=== PATIENT | male | born 1970 | race Caucasian/White ===

== ENCOUNTER → 2020-03-20 | Emergency (ER) | payer OTHER ==
[~2020-03-20] VITALS: Ht 162.6 cm; Wt 77.1 kg
[2020-03-20 20:15] VITALS: BP 137/96
[2020-03-20 20:28] LABS: Urine WBC None Seen /hpf (0 - 3)
[2020-03-20 20:38] LABS: Urine Bacteria NONE SEEN /hpf (None Seen); Urine Blood 2+ /uL (Negative)
== END | disposition home or self-care (01) ==
LOC: ER 17:54
DX: K29.00 Acute gastritis without bleeding (principal); R11.2 Nausea with vomiting, unspecified
CPT/HCPCS: 81001